=== PATIENT | male | born 1985 | race Caucasian/White ===

== ENCOUNTER 2017-06-12 14:12 | Emergency (ER) | payer MEDICAID, OTHER, SELFPAY ==
[~2017-06-12] VITALS: Ht 177.8 cm; Wt 80.0 kg
[2017-06-12 14:52] VITALS: BP 135/86
[2017-06-12] MEDS ORDERED: LIDOCAINE 1%, 20ML ONE (14:58)
[2017-06-12] MEDS ORDERED: LIDOCAINE 1%, 20ML SQ ONE (15:00)
[2017-06-12] MEDS ORDERED: HYDROcodone/APAP 5/325 TABLET ONE (15:14)
[2017-06-12] MEDS ORDERED: HYDROcodone/APAP 5/325 TABLET PO ONE (15:30)
== END 2017-06-12 15:55 | disposition home or self-care (01) ==
LOC: ED 15:13
DX: L03.011 Cellulitis of right finger (principal)
CPT/HCPCS: 99283

== ENCOUNTER 2017-07-16 01:06 | Emergency (ER) | payer MEDICAID ==
[~2017-07-16] VITALS: Ht 177.8 cm; Wt 72.0 kg
[2017-07-16 01:41] VITALS: BP 133/83
== END 2017-07-16 01:54 | disposition home or self-care (01) ==
LOC: ED 01:50
DX: H10.023 Other mucopurulent conjunctivitis, bilateral (principal); F17.210 Nicotine dependence, cigarettes, uncomplicated
CPT/HCPCS: 99283

== ENCOUNTER 2021-07-13 17:39 | Emergency (ER) | payer MEDICAID ==
[~2021-07-13] VITALS: Ht 177.8 cm; Wt 81.0 kg
[2021-07-13 17:53] VITALS: BP 118/64
== END 2021-07-13 18:06 | disposition home or self-care (01) ==
LOC: ED 17:49
DX: F12.122 Cannabis abuse with intoxication with perceptual disturbance (principal)
CPT/HCPCS: 99283